=== PATIENT | male | born 1950 | race Caucasian/White ===

== ENCOUNTER → 2016-06-04 | Outpatient (CLI) | payer BC ==
[~2016-06-04] VITALS: Ht 179.1 cm; Wt 115.9 kg
[~2016-06-04] MED LIST: ATOR10TA82 PO; COEN1CAP28 PO; GLC/500 PO; LISI5TAB3 PO; MELO15TA4 PO
[2016-06-04 15:33] VITALS: BP 129/77; PULSE 71; Ht 179.1 cm; Wt 115.9 kg
== END | disposition home or self-care (01) ==
LOC: C.NEUR 14:10
PROVIDERS: ATTEND Internal Medicine Pulmonary Disease
DX: R06.83 Snoring (principal); R53.83 Other fatigue; R06.81 Apnea, not elsewhere classified; E11.9 Type 2 diabetes mellitus without complications; I10 Essential (primary) hypertension; E78.5 Hyperlipidemia, unspecified

== ENCOUNTER → 2016-07-22 | Outpatient (CLI) | payer BC ==
--- NOTE | 2016-07-23 05:40 | PAP/PSG TECHNICIAN REPORT ---
[facility] Instructor Adjunct Surgical Technician Polysomnogram Report Study name: None Report date: 07/23/2016 Study date: 07/22/2016 Referring Physician: Ha Alfaro M.D. Name: JANET RIOS Interpreting Physician: Ha Alfaro M.D. Date of : 1950 Instructor Adjunct Surgical Technician: Rosy Ham RPSGT. Sex: Male Age: 66 StudyType: PSG Weight: 254.9 lbs Height: 66 years, Height 5' 10.9" Neck Circum: 18 inches BMI: 35.65 Medications: Lisinopril 5 mg, Atorvsatatin 10 mg, Metformin 500 mg, Meloxicam 15 mg, CO-Q-10 100 mg Patient History 66 yr. old male here for a diagnostic sleep study in room 6. Patient complains of snoring, fatigue, wakes frequently, and witnessed apneas. Patients [place] Sleepiness scale score is 13/24. Parameters Monitored NPSG: E1-M2, E2-M1, Fp1-M2, Fp2-M1, F3-M2, F4-M2, F4-M1, C3-M2, C4-M2, C4-M1, O1-M2, O2-M2, O2-M1, T3-M2, T4-M1, P3-M2, P4-M1, CHIN1, CHIN2, HR, EKG, Legs, PFLOW, SNOR, FLOW, CFLOW, Tidal Volume, THOR, ABDO, SpO2, PLTH, CPRESS, ETCO2 Wave, ETCO2, pH Sleep Architecture Sleep Stages Time at Lights Off 9:38:02 PM STAGES Time (min.) TST (%) Time at Lights On 5:27:32 AM Wake 140.0 -- Total Recording Time (TRT) 469.50 min. N1 52.0 16 Total Sleep Period (TSP) 407.5 min. N2 188.0 57 Total Sleep Time (TST) 329.5min. N3 27.0 8 Awake Time 140.0 min. REM 62.5 19 Wake after Sleep Onset 78.0 min. Sleep Efficiency (SE) 70 % Sleep Onset Latency (ARTEM) 62.0 min. Number of Stage 1 Shifts None Awakenings 46 Stage Changes 172 Number of REM periods 3 REM 62.5 19 REM Latency 105.0 min. NREM 267.0 81 Body Position Analysis Supine Right Left Side Prone Vertical Total Sleep Time (min.) 188.6 94.5 161.5 256.00 0.0 0.0 Total Sleep Time (%) 22% 29% 49% 78 0% N/A% Total Sleep Time REM (min.) 0.0 0.0 62.5 None 0.0 0.0 Total Sleep Time NREM (min.) 73.5 94.5 99.0 None 0.0 0.0 Intermittent Wake (min.) 115.1 14.9 10.1 None 0.0 0.0 Total Sleep Period (%) 31% None None None None None Arousals Myoclonus (PLM) * Events Count Index Events Count Index Spontaneous 3 1 Events Awake (PLMW) 252 108.0 Respiratory 47 9.7 Events Asleep w/ Arousal (PLMA) 14 2.5 PLM 14 3 Events Asleep w/o Arousal (PLMS) 161 29.3 Snoring 23 4 Total Asleep 175 31.9 Total 87 16 Total 427 55 Respiratory Analysis * CA OA MA CH H RERA Total Count 1 8 0 0 180 0 189 Index 0.2 1.5 0.0 0 32.8 0 34.4 Mean Duration 0.0 19.3 0.0 0.00 24.5 0.0 24.1 Longest Duration 0.0 26.9 0.0 0.00 0.0 0.0 59.3 Respiratory Event Summary Total Supine ~Supine Right Left Prone REM NREM Apneas Count 9 6 3 0 3 N/A 0 9 Index 1.6 5 1 0.0 1.1 N/A 0 2 Hypopneas (4% Desat) Count 180 87 93 33 60 N/A 11 169 Index 32.8 71.0 22 21.0 22.3 N/A 10.6 38.0 Apneas & All Hypopneas Count 189 93 96 33 63 N/A 11 178 Index 34.4 76 23 21 23 N/A 10.6 40.0 Respiratory Events (Cereal Miller+All Hyp+RERA) Count 189 93 96 33 63 N/A 11 178 Index 34.4 76 23 21.0 23.4 N/A 10.6 40.0 Respiratory Related Arousal Count 47 93 18 5 13 N/A 1 52 Index 9.7 29 4 3 5 N/A 1 12 Snoring Analysis Supine Right Left Prone REM NREM Total Snore duration 57.6 min Snores count 199 1,010 754 N/A 57 1,906 1,963 Snore mean duration 1.8 Sec Snores index 162 641 280 N/A 54.7 428.3 357.5 TST with snoring (%) 17.5% Desaturation Event Summary: Minimum %SpO2 Event Count Mean/Min/Max Duration(sec.) Desaturation Index % Time In Bed > 90 259 26.8 / 9.3 / 60.0 34.6 95.9 86 - 90 0 N/A 0.0 4.0 81 - 85 0 N/A 0.0 0.1 76 - 80 0 N/A 0.0 0.0 71 - 75 0 N/A 0.0 0.0 66 - 70 0 N/A 0.0 0.0 61 - 65 0 N/A 0.0 0.0 56 - 60 0 N/A 0.0 0.0 51 - 55 0 N/A 0.0 0.0 < 50 0 N/A 0.0 0.0 Total REM NREM Awake <50% 0.0 min. 0.0 min. 0.0 min. 0.0 min. 51 - 60% 0.0 min. 0.0 min. 0.0 min. 0.0 min. 61 - 70% 0.0 min. 0.0 min. 0.0 min. 0.0 min. 71 - 80% 0.0 min. 0.0 min. 0.0 min. 0.0 min. 81 - 90% 19.4 min. 2.7 min. 13.9 min. 2.8 min. 91 - 100% 448.9 min. 59.8 min. 253.0 min. 136.0 min. Average 94 93 93 94 Minimum SpO2 83 88 85 83 Desaturation Event Index 33.1 12.5 42.2 28.7 # Desat. Events below 89% 19 N/A 14 5 Time(%) with Saturation below 89% 0.5 0.0 0.3 0.2 Time(min.) with Saturation below 89% 2.2 0.1 1.2 0.8 Time (mins) REM (mins) NREM (mins) % of TST SpO2 Below 90% 72 4 N68 1.2 SpO2 Below 88% 6 0 0 0 Heart Rate Analysis Min (bpm) Max (bpm) Average (bpm) Awake 52 115 62 NREM 51 71 58 REM 52 71 56 Overall 51 71 58 Supplemental O2 Values Minimum O2 level: None Value Start Time End Time Instructor Adjunct Surgical Technician Comments Mr. Rios slept in the right, left, and supine positions. No cardiac arrhythmia. PLMs noted. No bruxism noted. Snoring was noted and scored as a 4 on a scale of 0 through 5. (0=no snoring, 5=snoring loud enough to be heard through a closed door or down the ortiz way) Mr. Rios did not wake to use the restroom s during the night. Mr. Rios stated, that was a good night, I usually get up more at home. The final report will be interpreted and signed by a sleep physician. The completed physician report will then be placed in the patient medical record. Therapy (cm H2O) 0 TIB (min.) 469.5 TST (min.) 329.5 Sleep Onset (min.) 62.0 REM Onset From Sleep (min.) 105.0 Sleep Efficiency % 70 Wakefulness (%) 30 Wakefulness (min.) 140.0 NREM 1 (%) 16 NREM 1 (min.) 52.0 NREM 2 (%) 57 NREM 2 (min.) 188.0 NREM 3 (%) 8 NREM 3 (min.) 27.0 REM (%) 19 REM (min.) 62.5 # Arousals 87 Arousal Index 16 # Snore 1,963 Snore Index 357.5 AHI 34.4 AHI Supine 76 AHI Non-Supine 23 NREM AHI 40.0 REM AHI 10.6 RDI 34.4 # Obstructive Apnea 8 # Central Apnea 1 # Mixed Apnea 0 # Hypopneas 180 RERAs 0 Total Respiratory Events 212 Time Below SpO2 89% (min.) 1.4 Mean NREM SpO2 (%) 93 Mean REM SpO2 (%) 93 Mean Sleep SpO2 (%) 93 Min NREM SpO2 (%) 85 Min REM SpO2 (%) 88 Position Supine (min.) 188.6 Position Non-supine (min.) 256.0 LM Index Sleep 31.9 LM Index NREM 35.7 LM Index REM 15.4 Mean Heart Rate (bpm) 58 Min Heart Rate (bpm) 51
--- NOTE | 2016-07-24 17:14 | POLYSOMNOGRAPH REPORT ---
CLINICAL DATA: A 66-year-old male with BMI of 35.65 referred by myself and Dr. Escoto for evaluation of possible sleep apnea with snoring, fatigue, frequent awakenings, and witnessed apnea. His [place] sleepiness score was elevated at 13/24. SLEEP ARCHITECTURE: Total sleep period was 407.5 minutes. Total sleep time was 329.5 minutes divided between 267 minutes of non-REM sleep and 62.5 minutes of REM sleep. Sleep onset latency was delayed at 62 minutes. REM latency was 105 minutes. Sleep efficiency was reduced at 78%. Wake after sleep onset was 78 minutes. Sleep consisted of stage N1 16%, N2 57%, N3 8%, REM 19%. AROUSAL DATA: 87 arousals were recorded for an index of 16 per hour. PERIODIC LIMB MOVEMENTS DATA: 175 limb movements during sleep were noted for an index of 31.9 per hour with arousal index of 2.5 per hour. RESPIRATORY DATA: Severe sleep apnea was documented. The AHI was 34.4. There were 1 central and 8 obstructive apneic episodes. The longest duration of apnea was 26.9 seconds. There were 180 hypopneic episodes. The mean duration of hypopnea was 24.5 seconds. OXIMETRY DATA: Mild nocturnal hypoxemia was seen. The oxygen melinda was 85%. Mean saturation was 94%. Time below 88% was 6 minutes. EKG: Heart rate ranged from 51-71 beats per minute. No arrhythmias were noted. RETAIL GROCER'S COMMENTS: The patient slept in the right, left, and supine positions. Snoring was severe, rated 4 on a scale of 1-5. IMPRESSION: Severe sleep apnea/hypopnea with an apnea hypopnea index of 34.4. RECOMMENDATIONS: The patient may benefit from a repeat sleep study with CPAP or use of auto CPAP. Clinical correlation is needed. [facility]
== END | disposition home or self-care (01) ==
LOC: C.NEUR 21:00
PROVIDERS: ATTEND Internal Medicine Pulmonary Disease
DX: R53.83 Other fatigue (principal); R06.83 Snoring; G47.39 Other sleep apnea

== ENCOUNTER → 2016-07-26 | Outpatient (CLI) | payer BC ==
[~2016-07-26] VITALS: Ht 179.1 cm; Wt 115.8 kg
[2016-07-26 15:57] VITALS: BP 126/77; PULSE 67; Ht 179.1 cm; Wt 115.8 kg
== END | disposition home or self-care (01) ==
LOC: C.NEUR 15:04
PROVIDERS: ATTEND Internal Medicine Pulmonary Disease
DX: R06.83 Snoring (principal); R06.81 Apnea, not elsewhere classified; R53.83 Other fatigue; G47.30 Sleep apnea, unspecified

== ENCOUNTER → 2016-09-05 | Outpatient (CLI) | payer BC ==
[~2016-09-05] MED LIST changes: -ATOR10TA82 PO; +ATOR10TA88 PO
--- NOTE | 2016-09-06 05:36 | PAP/PSG TECHNICIAN REPORT ---
[facility] Handyman Polysomnogram Report Study name: None Report date: 09/06/2016 Study date: 09/05/2016 Referring Physician: Ha Alfaro M.D. Name: JANET RIOS Interpreting Physician: Ha Alfaro M.D. Date of : 1950 Handyman: Jamey Waterman RPSGT. Sex: Male Age: 66 StudyType: PSG PAP Weight: 255 lbs 18 inches Height: 66 years, Height 5' 10.5" Neck Circum: BMI: 36.07 Medications: ATORVASTATIN CALCIUM 10 MG, COENZYME Q10 25 MG, GLUCOPHAGE 500 MG, LISINOPRIL 5 MG, MOBIC 15 MG, PROAIR HFA 108 (90) BASE, Patient History PATIENT HAD A SLEEP STUDY DONE IN JULY OF 2016 AND WAS POSITIVE FOR CHASIDY WITH AN AHI OF 34.4/HR. HE IS HERE TODAY FOR A CPAP TITRATION. RM 3 Parameters Monitored NPSG: E1-M2, E2-M1, Fp1-M2, Fp2-M1, F3-M2, F4-M2, F4-M1, C3-M2, C4-M2, C4-M1, O1-M2, O2-M2, O2-M1, T3-M2, T4-M1, P3-M2, P4-M1, CHIN1, CHIN2, HR, EKG, Legs, PFLOW, SNOR, FLOW, CFLOW, Tidal Volume, THOR, ABDO, SpO2, PLTH, CPRESS, ETCO2 Wave, ETCO2, pH Sleep Architecture Sleep Stages Time at Lights Off 9:06:33 PM STAGES Time (min.) TST (%) Time at Lights On 4:56:33 AM Wake 125.0 -- Total Recording Time (TRT) 470.50 min. N1 27.0 8 Total Sleep Period (TSP) 441.5 min. N2 186.5 54 Total Sleep Time (TST) 345.0min. N3 46.5 13 Awake Time 125.5 min. REM 85.0 25 Wake after Sleep Onset 118.0 min. Sleep Efficiency (SE) 73 % Sleep Onset Latency (ARTEM) 7.0 min. Number of Stage 1 Shifts None Awakenings 35 Stage Changes 116 Number of REM periods 5 REM 85.0 25 REM Latency 85.5 min. NREM 260.0 75 Body Position Analysis Supine Right Left Side Prone Vertical Total Sleep Time (min.) 103.8 303.7 0.0 303.65 0.0 0.0 Total Sleep Time (%) 12% 88% 0% 88 0% N/A% Total Sleep Time REM (min.) 0.0 85.0 0.0 None 0.0 0.0 Total Sleep Time NREM (min.) 41.3 218.7 0.0 None 0.0 0.0 Intermittent Wake (min.) 62.4 62.6 0.0 None 0.0 0.0 Total Sleep Period (%) 17% None None None None None Arousals Myoclonus (PLM) * Events Count Index Events Count Index Spontaneous 28 5 Events Awake (PLMW) 173 83.0 Respiratory 9 2.3 Events Asleep w/ Arousal (PLMA) 16 2.8 PLM 16 3 Events Asleep w/o Arousal (PLMS) 120 20.9 Snoring 3 1 Total Asleep 136 23.7 Total 56 10 Total 309 39 Respiratory Analysis * CA OA MA CH H RERA Total Count 0 2 0 0 15 9 17 Index 0.0 0.3 0.0 0 2.6 2 4.5 Mean Duration 0.0 18.5 0.0 0.00 19.0 16.4 18.1 Longest Duration 0.0 23.1 0.0 0.00 0.0 18.7 30.6 Respiratory Event Summary Total Supine ~Supine Right Left Prone REM NREM Apneas Count 2 0 2 2 N/A N/A 0 2 Index 0.3 0 0 0.4 N/A N/A 0 0 Hypopneas (4% Desat) Count 15 3 12 12 N/A N/A 4 11 Index 2.6 4.4 2 2.4 N/A N/A 2.8 2.5 Apneas & All Hypopneas Count 17 3 14 14 N/A N/A 4 13 Index 3.0 4 3 3 N/A N/A 2.8 3.0 Respiratory Events ([employer] Carpenter+All Hyp+RERA) Count 17 8 18 18 N/A N/A 4 13 Index 4.5 12 4 3.6 N/A N/A 2.8 5.1 Respiratory Related Arousal Count 9 8 8 8 N/A N/A 0 13 Index 2.3 7 2 2 N/A N/A 0 3 Snoring Analysis Supine Right Left Prone REM NREM Total Snore duration 2.6 min Snores count 70 37 N/A N/A 6 101 107 Snore mean duration 1.5 Sec Snores index 102 7 N/A N/A 4.2 23.3 18.6 TST with snoring (%) 0.8% Desaturation Event Summary: Minimum %SpO2 Event Count Mean/Min/Max Duration(sec.) Desaturation Index % Time In Bed > 90 30 30.5 / 11.0 / 58.5 3.8 99.9 86 - 90 0 N/A 0.0 0.1 81 - 85 0 N/A 0.0 0.0 76 - 80 0 N/A 0.0 0.0 71 - 75 0 N/A 0.0 0.0 66 - 70 0 N/A 0.0 0.0 61 - 65 0 N/A 0.0 0.0 56 - 60 0 N/A 0.0 0.0 51 - 55 0 N/A 0.0 0.0 < 50 0 N/A 0.0 0.0 Total REM NREM Awake <50% 0.0 min. 0.0 min. 0.0 min. 0.0 min. 51 - 60% 0.0 min. 0.0 min. 0.0 min. 0.0 min. 61 - 70% 0.0 min. 0.0 min. 0.0 min. 0.0 min. 71 - 80% 0.0 min. 0.0 min. 0.0 min. 0.0 min. 81 - 90% 0.7 min. 0.0 min. 0.0 min. 0.7 min. 91 - 100% 469.2 min. 85.0 min. 260.0 min. 124.2 min. Average 95 96 95 95 Minimum SpO2 89 91 91 89 Desaturation Event Index 3.8 4.9 2.8 5.8 # Desat. Events below 89% N/A N/A N/A N/A Time(%) with Saturation below 89% 0.0 0.0 0.0 0.0 Time(min.) with Saturation below 89% 0.0 0.0 0.0 0.0 Time (mins) REM (mins) NREM (mins) % of TST SpO2 Below 90% 2 N/A N2 0.0 SpO2 Below 88% 0 0 0 0 Heart Rate Analysis Min (bpm) Max (bpm) Average (bpm) Awake 49 77 58 NREM 48 64 55 REM 48 62 53 Overall 48 64 54 Supplemental O2 Values Minimum O2 level: None Value Start Time End Time Handyman Comments Mr. Rios slept in the right and supine positions. No cardiac arrhythmia noted. Leg movements noted. No bruxism noted. CPAP was initiated at +4 CMH2O and up-titrated to an optimal level of +13 CMH2O, which nearly eliminated all respiratory events and snoring. A Resmed Mirage Quattro full face size medium mask was used during titration Mr. Rios awoke to use the restroom 1 time during the night. Mr. Rios state I did not sleep as well as I do when I am in my own bed. The final report will be interpreted and signed by a sleep physician. The completed physician report will then be placed in the patient medical record. Therapy Event: Therapy (cm H20) 4 6 7 8 10 11 12 13 Total Time at Pressure (min.) 31.0 70.2 113.2 67.8 21.5 92.9 51.9 21.5 TST at Pressure (min.) 5.0 65.2 97.7 49.3 11.0 84.4 32.4 0.0 # Periods 1 1 1 1 1 1 1 1 Sleep Onset (min.) 7.0 0.0 0.0 0.0 0.0 0.0 0.0 0.0 REM Onset (min.) N/A 61.5 0.0 4.6 N/A 54.8 N/A N/A Sleep Efficiency % 16 92 86 72 51 90 62 0 Wakefulness (%) 84.0 7.1 13.7 27.3 48.9 9.2 37.5 99.9 Wakefulness (min.) 26.0 5.0 15.5 18.5 10.5 8.5 19.5 21.5 NREM 1 (%) 6.5 0.7 2.2 8.1 7.0 8.6 13.4 0.1 NREM 1 (min.) 2.0 0.5 2.5 5.5 1.5 8.0 7.0 0.0 NREM 2 (%) 9.6 51.3 56.4 15.2 44.1 41.3 49.0 0.0 NREM 2 (min.) 3.0 36.0 63.9 10.3 9.5 38.4 25.5 0.0 NREM 3 (%) 0.0 28.5 12.8 0.0 0.0 12.9 0.0 0.0 NREM 3 (min.) 0.0 20.0 14.5 0.0 0.0 12.0 0.0 0.0 REM (%) 0.0 12.3 14.9 49.4 0.0 28.0 0.0 0.0 REM (min.) 0.0 8.7 16.8 33.5 0.0 26.0 0.0 0.0 # Arousals 1 3 13 8 3 16 12 0 Arousal Index 12.1 2.8 8.0 9.7 16.4 11.4 22.2 0.0 # Snore 5 0 12 17 4 6 63 0 Snore Index 60.4 0.0 7.4 20.7 21.9 4.3 116.5 0.0 AHI 12.1 3.7 0.6 6.1 5.5 2.1 3.7 0.0 AHI Supine 0.0 N/A N/A N/A N/A 11.2 3.7 0.0 AHI Non-Supine 41.0 3.7 0.6 6.1 5.5 1.5 N/A N/A NREM AHI 12.1 2.1 0.0 18.9 5.5 2.1 3.7 0.0 REM AHI N/A 13.8 3.6 0.0 N/A 2.3 N/A N/A RDI 24.2 3.7 1.2 9.7 5.5 4.3 5.5 0.0 # Obstructive 0 0 0 1 1 0 0 0 # Central Ap 0 0 0 0 0 0 0 0 # Mixed 0 0 0 0 0 0 0 0 # Hypopneas 1 4 1 4 0 3 2 0 RERAS 1 0 1 3 0 3 1 0 Total Respiratory Events 2 4 2 8 1 6 3 0 Time Below SpO2 89.00% (min.) 0.0 0.0 0.0 0.0 0.0 0.0 0.0 0.0 Mean NREM SpO2 (%) 94 95 96 95 95 95 94 94 Mean REM SpO2 (%) N/A 96 97 97 N/A 96 N/A N/A Mean Sleep SpO2 (%) 94 95 96 96 95 95 94 94 Min NREM SpO2 (%) 91 92 94 92 93 91 91 94 Min REM SpO2 (%) N/A 92 93 91 N/A 93 N/A N/A Position Supine (min.) 3.5 0.0 0.0 0.0 0.0 5.4 32.4 0.0 Position Non-supine (min.) 1.5 65.2 97.7 49.3 11.0 79.0 0.0 0.0 LM Index Sleep 36.3 21.2 22.7 37.7 49.3 17.1 16.6 0.0 LM Index NREM 36.3 22.3 25.2 60.6 49.3 22.6 16.6 0.0 LM Index REM N/A 13.8 10.7 26.9 N/A 4.6 N/A N/A Mean Heart Rate (bpm) 57 55 53 53 56 55 56 55 Min Heart Rate (bpm) 55 50 48 48 53 49 51 55
--- NOTE | 2016-09-10 16:46 | Sleep Study ---
Sleep Study Report Date of Service: September 05, 2016 Sleep Study Report Clinical data: The patient is a 66-year-old male with a BMI 36 referred for a sleep study for treatment of severe sleep apnea. He had a sleep study done in July of 2016 which showed an AHI of 34.4. He is referred for a CPAP titration. Sleep architecture: Total sleep time is 345 minutes, divided between 260 minutes of non-REM sleep and 85 minutes REM sleep. Sleep latency was 7 minutes. REM latency was 85.5 minutes. Sleep efficiency was 73 percent. Wake after sleep onset was elevated at 118 minutes. Sleep consisted of stage N1 8 percent, N2 54 percent, N3 13 percent, and REM 25 percent. Arousal data: 56 arousals were recorded for an index of 10 per hour. PLM data: 136 limb movements during sleep were noted for an index of 23.7 per hour with an arousal index of 2.8 per hour Respiratory data: The AHI was 3. There are 2 obstructive apneic episodes. The longest duration of apnea was 23 seconds. There were 15 hypopneas . The mean duration of hypopnea was 19 seconds. Oximetry data: No hypoxemia was seen. Oxygen melinda was 91 percent. Mean saturation was 95 percent. EKG: Heart rates ranged from 48 to 64 beats per minute. No arrhythmias were noted. Set [employer]'s comments and treatment summary: The patient slept in the right and supine positions. He used a ResMed Mirage Quattro full face size medium mask. CPAP was titrated up to 12 centimeters water pressure. At his final pressure setting, he slept for 32 minutes with an AHI of 3.7. He was tried at 13 centimeters water pressure for 21 minutes but did not sleep. Impression: Severe sleep apnea improved on CPAP 12-13 centimeters water pressure with the above-noted interface Recommendations: The patient should be seen back in follow-up and started on CPAP at the above-noted pressure settings. Copies To 1: Tim Escoto, DO
== END | disposition home or self-care (01) ==
LOC: C.NEUR 20:00
PROVIDERS: ATTEND Internal Medicine Pulmonary Disease
DX: G47.33 Obstructive sleep apnea (adult) (pediatric) (principal)

== ENCOUNTER → 2016-10-25 | Outpatient (CLI) | payer BC ==
[~2016-10-25] VITALS: Ht 179.1 cm; Wt 11.5 kg
[2016-10-25 15:16] VITALS: BP 133/79; PULSE 57; Ht 179.1 cm; Wt 11.5 kg
== END | disposition home or self-care (01) ==
LOC: C.NEUR 13:55
PROVIDERS: ATTEND Internal Medicine Pulmonary Disease
DX: G47.30 Sleep apnea, unspecified (principal)

== ENCOUNTER → 2017-01-10 | Outpatient (CLI) | payer BC ==
[~2017-01-10] VITALS: Ht 179.1 cm; Wt 111.4 kg
[~2017-01-10] MED LIST changes: +ATOR10TA82 PO; -ATOR10TA88 PO
[2017-01-10 13:58] VITALS: BP 164/61; PULSE 71; Ht 179.1 cm; Wt 111.4 kg
== END | disposition home or self-care (01) ==
LOC: C.NEUR 13:28
PROVIDERS: ATTEND Internal Medicine Pulmonary Disease
DX: G47.30 Sleep apnea, unspecified (principal); R53.83 Other fatigue

== ENCOUNTER 2020-10-22 05:31 | Observation (INO) ==
[2020-10-22] MEDS ORDERED: diphenhydrAMINE 50 MG/ML VIAL IV STA (05:56)
[2020-10-22] MEDS ORDERED: DEXAMETHASONE SOD INJ 4 MG/ML VIAL IV STA (05:56)
[2020-10-22] MEDS ORDERED: FAMOTIDINE 20MG IV PUSH 20 MG/5 ML SYR IV STA (05:56)
--- NOTE | 2020-10-22 06:32 | Emergency Department Note ---
Impression & Plan Angioedema Admit to the [facility] service ED Provider Note NAME: JANET RIOS AGE: 70 SEX: M ARRIVES VIA: Walk-In INFORMANT: Patient ED PROVIDER(S): Aria Jimenez DO CHIEF COMPLAINT: Edema to the left face PLAN: Disposition: Admit to the [facility] Condition: Guarded MEDICAL DECISION MAKING: This is a 70-year-old male patient who presents to the emergency department with sudden onset of edema to the left side of his face. The patient has never had swelling like this before. The patient denies any difficulty breathing or swallowing. On the way to the hospital, some of the swelling resolved but then returned once he arrived here in the hospital. The patient does take an ADELA inhibitor. While here in the emergency department, the swelling seemed to move to his lower lip and then to the right side of his mouth. His presentation seems consistent with angioedema. He was given IV Decadron, IV Benadryl, and IV Pepcid with no significant improvement. The [facility] Triage Nursing notes reviewed and agree with them. Additional history obtained from his Vital Signs: reviewed and unremarkable Differential diagnosis: Acute allergic reaction, insect bite, angioedema ER treatment provided: IV Decadron IV Benadryl IV Pepcid Diagnostics interpreted by me: Cardiac Monitoring: Normal sinus rhythm at 64 Laboratory studies: See below HPI: 70/M arrives for evaluation of facial swelling. This is a 70-year-old male patient who presents to the emergency department with sudden onset of left- sided facial swelling. The patient denies ever having swelling like this in the past. He has no swelling to his tongue. He has no difficulty swallowing. He has no respiratory distress. ROS: See above HPI for pertinent positives & negatives. A total of 10 systems reviewed and were otherwise negative. PAST MEDICAL HISTORY:See Below PAST SURGICAL HISTORY:See Below FAMILY HISTORY:See Below SOCIAL HISTORY:See Below HOME MEDICATIONS:See Below ALLERGIES:See Below VITALS:See Below PHYSICAL EXAMINATION: HEENT: Head - normocephalic and atraumatic. Pupils are equal, round, and reactive to light. Extraocular eye muscles are intact, and sclera are anicteric. Nose - moist nasal mucosa without discharge. Mouth -the patient has significant edema to the left side of his mouth including the left upper l ip. Oropharynx is nonerythematous and there is no tonsillar exudate or edema noted. Neck: Supple; no edema noted to the left side of the neck. There is no cervical lymphadenopathy or nuchal rigidity. Heart: Regular rate and rhythm. There is a normal S1 and S2 with no murmurs, clicks, or gallops appreciated. Lungs: Clear to auscultation bilaterally with no wheezes, rales, or rhonchi. Abdomen: Soft, completely nontender, nondistended, with good bowel sounds. There are no palpable pulsatile masses or hepatosplenomegaly. There is no guarding, rigidity, or rebound noted. Extremities: No evidence of cyanosis, clubbing, or edema. There are easily palpable peripheral pulses. Skin: warm and dry with good turgor and no rashes. ED COURSE: Times/Reassessments: 0540: Patient was evaluated in room B9. A complete history and physical was performed. An IV lock was initiated and the patient was given 50 mg of IV Benadryl, 10 mg of IV Decadron, and 20 mg of IV Pepcid. Order was placed for continuous cardiac monitoring. The patient is in a normal sinus rhythm at a rate of 64. 0650: The patient was reevaluated now has swelling to the right upper lip. I reevaluated the patient again and the face still appears edematous despite the above medications. I will discussed the case with the [facility] hospitalist and they will evaluate him. Aria Jimenez DO Past Med/Surg History Medical History (Updated 10/23/20 @ 17:21 by Aria Jimenez DO) Asthma allergy induced inhaler prn Diabetes mellitus, type 2 History of colon polyps Hyperlipidemia Hypertension Kidney stones Sleep apnea cpap Surgical History History of Achilles tendon repair left foot History of appendectomy History of arthroscopy of left knee History of arthroscopy of right knee History of carpal tunnel release of both wrists History of colonoscopy History of cystoscopy History of lithotripsy x2 History of tooth extraction Family History Brother Family history of diabetes mellitus Sister Family history of diabetes mellitus Mother Family history of diabetes mellitus Family hx of colon cancer Family/Other Family history of diabetes mellitus grandson Family/Other Family history of diabetes mellitus nieces Other No family history of adverse response to anesthesia No family history of bleeding disorder Social History Smoking Status: Former smoker Second Hand Exposure: No; Hx Alcohol Use: Yes Alcohol type: beer Hx Substance Use: No Preferred Language: Vietnamese Communication Ability: Effective Panel Assembler Required: No Beliefs That Will Affect Care: None Current Living Situation: Spouse Feels Safe at Home: Yes Assistive Devices: None Allergies Allergies Allergy/AdvReac Type Severity Reaction Status Date / Time No Known Drug Allergies Allergy Verified 10/22/20 07:41 Home Meds Home Medications Medication Instructions Recorded Confirmed albuterol sulfate 90 mcg/actuation 1 puff INHALATION Q6H PRN 08/10/18 10/22/20 aerosol inhaler (ProAir HFA) atorvastatin 10 mg tablet 10 mg PO QAM 08/10/18 10/22/20 coenzyme Q10 100 mg tablet 100 mg PO QAM 08/10/18 10/22/20 diclofenac sodium 75 mg 75 mg PO BID 10/22/20 10/22/20 tablet,delayed release metformin 500 mg tablet 1,000 mg PO BIDM 10/22/20 10/22/20 Previous Rx's Medication Instructions Recorded hydrochlorothiazide 12.5 mg capsule 12.5 mg PO DAILY #30 cap 10/23/20 Results & Data (ED) Vital Signs Vital Signs - 24 hr 10/22/20 05:34 10/22/20 06:02 Temperature 36.4 C L Temperature Source Oral Pulse Rate 64 58 L Pulse Rate from SpO2 Sensor 58 L Respiratory Rate 18 23 Respiratory Depth Normal Blood Pressure 153/85 H 149/75 H Blood Pressure Mean 107 99 Pulse Oximetry 96 96 Oxygen Delivery Method Room Air Room Air Sepsis Recent Fever Within 48 Hours No Sepsis New/Unexplained Change in Mental Status N/A Sepsis Action Taken by Nursing No Action Required Laboratory Data Result diagrams: 10/22/20 12:56 Lab Results 10/22/20 10/22/20 Range/Units 08:45 08:45 COVID-19 Eval Order Covid19 at [facility] SARS-CoV-2 (PCR) NEGATIVE (Negative) Administered Medications Discontinued Medications Atorvastatin Calcium (Atorvastatin 10 Mg Tab) 10 mg PO QAM ROLO Stop: 11/22/20 08:59 Last Admin: 10/23/20 08:55 Dose: 10 mg Documented by: [id number] Cetirizine HCl (Cetirizine Hcl 10 Mg Tablet) 10 mg PO NOW ONE Stop: 10/22/20 13:54 Last Admin: 10/22/20 15:13 Dose: 10 mg Documented by: [id number] Dexamethasone (Dexamethasone Sod Inj 4 Mg/Ml Vial) 10 mg IV NOW STA Stop: 10/22/20 05:57 Last Admin: 10/22/20 06:00 Dose: 10 mg Documented by: [id number] Diphenhydramine HCl (Diphenhydramine 50 Mg/Ml Vial) 50 mg IV NOW STA Stop: 10/22/20 05:57 Last Admin: 10/22/20 06:01 Dose: 50 mg Documented by: [id number] Enoxaparin Sodium (Enoxaparin Inj 40 Mg/0.4 Ml Syr) 40 mg SQ Q24H ROLO Stop: 11/21/20 13:59 Last Admin: 10/22/20 14:22 Dose: 40 mg Documented by: [id number] Hydrochlorothiazide (Hydrochlorothiazide 25 Mg Tab) 12.5 mg PO QAM ROLO Stop: 11/22/20 11:44 Last Admin: 10/23/20 12:35 Dose: 12.5 mg Documented by: [id number] Famotidine (Pepcid 20mg Iv Push) 20 mg in 5 mls @ 2.5 mls/min IV NOW STA Stop: 10/22/20 05:57 Last Admin: 10/22/20 06:01 Dose: 2.5 mls/min Documented by: [id number] Insulin Aspart (Insulin Aspart 100 Units/Ml 3 Ml Pen) 0 units SC ACHS ROLO Stop: 11/21/20 22:04 Last Admin: 10/23/20 12:39 Dose: Not Given Documented by: [id number] Cosigned by: [id number] Admin: 10/23/20 08:57 Dose: 3 units Documented by: [id number] Cosigned by: [id number] Admin: 10/22/20 22:12 Dose: 2 units Documented by: [id number] Cosigned by: [id number] Metformin HCl (Metformin Hcl 500 Mg Tab) 1,000 mg PO BIDM [facility] Stop: 11/21/20 16:59 Last Admin: 10/23/20 08:55 Dose: 1,000 mg Documented by: [id number] Admin: 10/22/20 17:55 Dose: 1,000 mg Documented by: [id number] Discharge Plan Visit Data Chief Complaint: Facial Injury/Pain Stated Complaint: SWOLLEN LIP AND CHECK ED Provider: Aria Jimenez Discharge Problem: Angioedema Patient Disposition: Admitted As Inpatient Discharge Instructions Interventions: ED Discharge Assessment Last Done: 10/22/20 11:55 Discharge Problem: Angioedema Qualifiers: Encounter type: initial encounter Qualified Code(s): T78.3XXA - Angioneurotic edema, initial encounter
--- NOTE | 2020-10-22 08:24 | History & Physical Report ---
Date of Service October 22, 2020 Assessment & Plan (1) Angioedema: Plan: 70 y/o M w/ PMHx of HTN, DM2 who presents w/ new onset acute angioedema likely secondary to lisinopril use. Stable and not suggestive of airway involvement. - acute - most likely secondary to ADELA inhibitor use; lack of other obvious causes per HPI - less likely allergic angioedema - continue supportive care - will admit for observation overnight; no airway involvement at this time Present on Admission?: Yes (2) Severe sleep apnea: Plan: - continue home phs cpap settings, 12 mmHg per patient Present on Admission?: Yes (3) Essential hypertension: Plan: - d/c home lisinopril Present on Admission?: Yes (4) Diabetes mellitus: Plan: - continue home metformin 1000mg BID (5) Smokes less than 1/2 pack per day: Plan: - per patient, no current use, he had 10-15 pack year hx in past Present on Admission?: Yes (6) Seasonal allergies: Plan: - continue home Zyrtec Present on Admission?: Yes Plan: Covid neg FEN/GI: DM2 diet. No IV fluids. ppx: SQ Lovenox code: full dispo: med/surg History of Present Illness Chief Complaint: left facial swelling Primary Care Provider: Tim Escoto Capo Fisher is a 70 y/o male w/ PMHx of HTN, DM (A1c ~7.1), CHASIDY who presents w/ left facial/lip swelling upon waking up this morning at 430AM. He first noticed it when he was going to the restroom and notes that initially it was mild, but worsened and reached its worse at 5AM, so his took him to the ED. He has no prior hx of this. He has been on lisinopril 5mg daily for 10 years now and has never had a reaction to it before. Patient denies SOB or throat/airway involvement. Denies recent bee stings or allergic foods. He recen tly changed from meloxicam to diclofenac PO 2 months for joint inflammation. ED course: Patient was given 50 mg of IV Benadryl, 10 mg of IV Decadron, and 20 mg of IV Pepcid. The facial swelling persisted w/ slight improvement. There is more involvement of the bilateral upper lips, but the lower lip swelling has improved. Allergies Allergy/AdvReac Type Severity Reaction Status Date / Time No Known Drug Allergies Allergy Verified 10/22/20 07:41 Home Medications Medication Instructions Recorded Confirmed Type albuterol sulfate 90 mcg/actuation 1 puff INHALATION Q6H PRN 08/10/18 10/22/20 History aerosol inhaler (ProAir HFA) atorvastatin 10 mg tablet 10 mg PO QAM 08/10/18 10/22/20 History coenzyme Q10 100 mg tablet 100 mg PO QAM 08/10/18 10/22/20 History lisinopril 5 mg tablet 5 mg PO HS 08/10/18 10/22/20 History diclofenac sodium 75 mg 75 mg PO BID 10/22/20 10/22/20 History tablet,delayed release metformin 500 mg tablet 1,000 mg PO BIDM 10/22/20 10/22/20 History Past Med/Surg History Medical History (Updated 10/22/20 @ 17:15 by Bernabe Grant MD) Asthma allergy induced inhaler prn Diabetes mellitus, type 2 History of colon polyps Hyperlipidemia Hypertension Kidney stones Sleep apnea cpap Surgical History History of Achilles tendon repair left foot History of appendectomy History of arthroscopy of left knee History of arthroscopy of right knee History of carpal tunnel release of both wrists History of colonoscopy History of cystoscopy History of lithotripsy x2 History of tooth extraction Family History Brother Family history of diabetes mellitus Sister Family history of diabetes mellitus Mother Family history of diabetes mellitus Family hx of colon cancer Family/Other Family history of diabetes mellitus grandson Family/Other Family history of diabetes mellitus nieces Other No family history of adverse response to anesthesia No family history of bleeding disorder Social History Smoking Status: Former smoker Second Hand Exposure: No; Do You Dip or Chew Tobacco: Yes; Tobacco Cessation Education Requested by Patient: No Hx Alcohol Use: Yes Alcohol type: beer Hx Substance Use: No Preferred Language: Romansh Communication Ability: Effective Principal Network Architect Required: No Beliefs That Will Affect Care: None Current Living Situation: Spouse Other Information That Helps Us Care for You: No Feels Safe at Home: Yes Safety Concerns: Feels Safe At This Time Assistive Devices: Glasses Review of Systems Review of Systems: All systems reviewed & are unremarkable except as noted in HPI & below Mild numbness at lower lip earlier, resolved; currently has mild numbness at upper lip. No jaw numbness. Physical Exam Physical Exam: General: Grossly A&O. NAD. Cooperative. Well-appearing. HEENT: Atraumatic, normocephalic. EOMI. PERRL. Moderate facial swelling at L cheek w/o auricular or parotid involvement. Upper lip appears swollen. No tenderness to palpation of face. No tongue swelling. Pulm: CTAB. -wheezes, -rales, -rhonchi. Symmetrical chest rise. No respiratory distress. Cardiac: RRR, -mrg. Radial pulses intact and symmetrical. Trace LE eema. Abdominal: Nontender, nondistended, soft. Obese abdomen. Back: No CVA ttp. Musculoskeletal: Moving all extremities Neuro: CN II-XII intact; exam limited by L cheek swelling. 5+/5 strength of all 4 extremities. Normal sensation. Integumentary: No rashes. Results & Data Results & Data ([facility]) Vital Signs (Past 12 Hours) Vital Signs Temp Pulse Resp BP Pulse Ox 10/22/20 06:30 60 16 150/85 H 96 10/22/20 06:02 58 L 23 149/75 H 96 10/22/20 05:34 36.4 C L 64 18 153/85 H 96 Laboratory Results n/a Diagnostic Findings n/a Code Status & VTE Plan Code Status full code VTE Prophylaxis Plan VTE Prophylaxis will be ordered: Yes Supervising Physician Co-Signing Physician Notes I personally examined the patient and verified all tamayo points of history and exam, discussed case, and agree with decision making with Dr Grant. Still has some facial swelling, no tongue swelling, no dyspnea. Vitals noted, in general he is awake and alert pleasant no distress. HEENT normocephalic atraumatic mucous membranes are moist. He does have some subtle swelling of his left upper lip, and there is a bit of asymmetry with his left cheek appearing gonzalez than his right. No tongue swelling, airway is open, no stridor. Breathing unlabored no accessory muscle use. Angioedemagiven the rapid shifting and face swelling, ER felt it prudent to watch him to ensure no airway compromise. Thus far he has looked good. We discussed even possibly going home today, but in discussion of practical realities of the situation, [place] 25 [place] from [place] hospital, so in the very small chance that he would have any deterioration, it would take quite a while to return. To that end we agreed that it would be most prudent to watch him into tomorrow, with hopes of home in the a.m. Resident Activity Tracking Resident Involvement: Resident Care Provided Care Provided: Adult Hospital Medicine
[2020-10-22] MEDS ORDERED: ALBUTEROL HFA 8 GM INHALER INH PRN (12:48)
[2020-10-22 13:29] LABS: Creatinine Clr Calc Pharmacy 64.5 ml/min; Est GFR (African American) 64.2 ml/min; Est GFR (Non-African American) 55.4 ml/min
[2020-10-22] MEDS ORDERED: CETIRIZINE HCL 10 MG TABLET PO ONE (13:53)
[2020-10-22] MEDS ORDERED: ENOXAPARIN INJ 40 MG/0.4 ML SYR SQ SCH (14:00)
--- NOTE | 2020-10-22 17:15 | Billing Data ---
Date of Service October 22, 2020 Coding Level of Care Code INT OBSERVATION CARE 50M LVL 2
[2020-10-22] MEDS: metFORMIN HCL 500 MG TAB PO SCH (17:55)
[2020-10-22] MEDS ORDERED: GLUCOSE 40% GEL 15 GM TUBE PO PRN (21:42)
[2020-10-22] MEDS ORDERED: CARBOHYDRATES FOR HYPOGLYCEMIA PO PRN (21:42)
[2020-10-22] MEDS ORDERED: GLUCOSE 10 TABS/TUBE PO PRN (21:42)
[2020-10-22] MEDS ORDERED: DEXTROSE 50% 50 ML SYRINGE IV PRN (21:42)
[2020-10-22] MEDS ORDERED: GLUCAGON FOR INJ 1 MG VIAL SQ PRN (21:42)
[2020-10-22] MEDS: INSULIN ASPART 100 UNITS/ML 3 ML PEN SC SCH (22:12)
--- NOTE | 2020-10-23 07:11 | Hospitalist Progress Note ---
Date of Service October 23, 2020 Assessment & Plan (1) Angioedema: Plan: 70 y/o M w/ PMHx of HTN, DM2 who presents w/ new onset acute angioedema likely secondary to lisinopril use. Stable and not suggestive of airway involvement. - acute - most likely secondary to ADELA inhibitor use; lack of other obvious causes per HPI - less likely allergic angioedema - continue supportive care - will admit for observation overnight; no airway involvement at this time (2) Severe sleep apnea: Plan: - continue home phs cpap settings, 12 mmHg per patient (3) Essential hypertension: Plan: - d/c home lisinopril (4) Diabetes mellitus: Plan: - continue home metformin 1000mg BID (5) Smokes less than 1/2 pack per day: Plan: - per patient, no current use, he had 10-15 pack year hx in past (6) Seasonal allergies: Plan: - continue home Zyrtec Plan: Covid neg FEN/GI: DM2 diet. No IV fluids. ppx: SQ Lovenox code: full dispo: med/surg Admission and Anticipated Discharge Date Admission Date: October 22, 2020 Results & Data Results & Data ([facility]) Vital Signs (Past 12 Hours) Vital Signs Temp Pulse Pulse Resp BP Pulse Ox 10/22/20 23:30 72 18 96 10/22/20 22:33 36.8 C 71 18 159/73 H 96
[2020-10-23] MEDS ORDERED: INSULIN ASPART 100 UNITS/ML 3 ML PEN SC SCH (07:30)
[2020-10-23] MEDS: metFORMIN HCL 500 MG TAB PO SCH (08:55)
[2020-10-23] MEDS: INSULIN ASPART 100 UNITS/ML 3 ML PEN SC SCH ×2 (08:57→12:39)
[2020-10-23] MEDS ORDERED: ATORVASTATIN 10 MG TAB PO SCH (09:00)
[2020-10-23] MEDS ORDERED: hydroCHLOROthiazide 25 MG TAB PO SCH (11:45)
--- NOTE | 2020-10-23 14:28 | Discharge Summary ---
Date of Service October 23, 2020 Admission HPI Per Admitting Provider Capo Fisher is a 70 y/o male w/ PMHx of HTN, DM (A1c ~7.1), CHASIDY who presents w/ left facial/lip swelling upon waking up this morning at 430AM. He first noticed it when he was going to the restroom and notes that initially it was mild, but worsened and reached its worse at 5AM, so his took him to the ED. He has no prior hx of this. He has been on lisinopril 5mg daily for 10 years now and has never had a reaction to it before. Patient denies SOB or throat/airway involvement. Denies recent bee stings or allergic foods. He recently changed from meloxicam to diclofenac PO 2 months for joint inflammation. ED course: Patient was given 50 mg of IV Benadryl, 10 mg of IV Decadron, and 20 mg of IV Pepcid. The facial swelling persisted w/ slight improvement. There is more involvement of the bilateral upper lips, but the lower lip swelling has improved. Admission Exam Per Admitting Provider General: Grossly A&O. NAD. Cooperative. Well-appearing. HEENT: Atraumatic, normocephalic. EOMI. PERRL. Moderate facial swelling at L cheek w/o auricular or parotid involvement. Upper lip appears swollen. No tenderness to palpation of face. No tongue swelling. Pulm: CTAB. -wheezes, -rales, -rhonchi. Symmetrical chest rise. No respiratory distress. Cardiac: RRR, -mrg. Radial pulses intact and symmetrical. Trace LE eema. Abdominal: Nontender, nondistended, soft. Obese abdomen. Back: No CVA ttp. Musculoskeletal: Moving all extremities Neuro: CN II-XII intact; exam limited by L cheek swelling. 5+/5 strength of all 4 extremities. Normal sensation. Integumentary: No rashes. Principal Diagnosis Angioedema Discharge Exam Constitutional: well-appearing, no acute distress HEENT: NCAT, no conjunctival injection CV: regular rhythm, no murmur appreciated, extremities well-perfused, no LE edema Resp: CTABL, no wheezes/rales/rhonchi appreciated, no increased work of breathing Skin: warm, dry, no rash appreciated Neuro: AOx4, no focal neurological deficits appreciated Discharge Data Allergies Allergy/AdvReac Type Severity Reaction Status Date / Time No Known Drug Allergies Allergy Verified 10/22/20 07:41 Consultations 10/22/20 08:03 ED Decision to Admit Stat Hospital Course (1) Angioedema: Angioedema Patient's angioedema was suspected to be secondary to lisinopril, which was discontinued. He received 10mgs Decadron and Benadryl in ED. Symptoms improved gradually over time and had completely resolved by hospital day two. At no point was patient's airway or breathing affected. Patient was discharged on hospital day two in stable condition. Close PCP follow-up was recommended. HTN Since patient's lisinopril was discontinued, HCTZ was started at 12.5mg daily. Patient was instructed to follow up with PCP within one week. Total Time Total Time Spent Total Time Spent (In Minutes): see attending documentation Discharge Plan Discharge Items Patient Disposition: Home - Self-Care Reason For Visit: ANGIOEDEMA Discharge Diagnosis: Angioedema Activity: Resume your previous activity Non-emergency contact: Primary Care Provider Call non-emergency contact if: your symptoms worsen Follow-up/Referrals: Tim Escoto [Primary Care Provider] - 10/27/20 10:15 am Diet: Carb Consistent or DM2 Addtl Attending Provider Instructions: You were admitted to the hospital for angioedema. A discharge summary will be sent to your primary care physician to ensure continuity of care. Please bring this discharge summary with you to your next office appointment so that your provider can review it at that time. Follow-up appointments: Make a follow-up appointment with your PCP within the next week. It is very important that you follow up with them shortly after discharge from the hospital. Keep all your follow-up appointments as already scheduled. If you cannot make an appointment, notify your provider. Medications: Your medication list has been reviewed and reconciled upon discharge to ensure accuracy and continuity of care. An updated list of all your medications is included with your hospital discharge paperwork. We have discontinued your lisinopril. Please do not take lisinopril going forward. We started a new blood pressure medication called hydrochlorothizazide (HCTZ). Please take HCTZ 12.5mg once daily. Take your medications as instructed; do not skip a dose of your medicines. Make sure all of your doctors know every medicine you are taking (including [id number]-vposzxl medicines, vitamins, and supplements). Call your primary care provider before taking any new medicines (including qmmu-tiv-tshlhek medicines, vitamins, and supplements), because some of these may interact with your current medications, or may make your symptoms worse. Tell your primary care provider if you cannot afford your medications. CONTACT YOUR PRIMARY CARE PROVIDER if you experience any of the following: Swelling of any part of your face Numbness, tingling, or weakness Difficulty following your treatment plan, or difficulty taking medications CALL 911 OR GO TO THE EMERGENCY DEPARTMENT if you experience any of the following: Sudden, severe abdominal pain or nausea/vomiting Severe chest pain, or chest pain that radiates (moves) to your jaw or arm Sudden, severe shortness of breath or difficulty breathing Thank you for allowing us to participate in your care. Pending Studies at Discharge: No Stand-Alone Forms: My [facility], Smoking Cessation Medications and DC Order Prescriptions: New hydrochlorothiazide 12.5 mg capsule 12.5 mg PO DAILY Qty: 30 RF: 1 Continued atorvastatin 10 mg Tablet 10 mg PO QAM RF: 0 albuterol sulfate [ProAir HFA] 90 mcg/actuation Hfa Aerosol Inhaler 1 puff INHALATION Q6H PRN (Reason: Shortness Of Breath) RF: 0 coenzyme Q10 100 mg Tablet 100 mg PO QAM RF: 0 metformin 500 mg tablet 1,000 mg PO BIDM RF: 0 diclofenac sodium 75 mg tablet,delayed release (DR/EC) 75 mg PO BID RF: 0 Discontinued lisinopril 5 mg Tablet 5 mg PO HS RF: 0 Discharge Orders: Discharge Order (Routine); Ordered 10/23/20 Ordered By: Jimi Ibarra/Other Patient Handouts: ED Angioedema Admission Data Admit Date/Time: 10/22/20 10:16 Attending Provider: Anjelica Goodson Admit Provider: Bernabe Grant Primary Care Provider: Tim Escoto Other Providers: Gordon Shell Other Interventions: Discharge Summary Assessment (RN) Last Done: 10/23/20 12:17 Supervising Physician Co-Signing Physician Notes Resident Physician Supervision Note: I independently interviewed and examined the patient and verified the tamayo history and physical, reviewed labs and image studies and agree with resident Dr. Sosa findings and care plan. Resident Activity Tracking Resident Involvement: Resident Care Provided Care Provided: Adult Hospital Medicine
[2020-10-23] MEDS ORDERED: CETIRIZINE HCL 10 MG TABLET PO SCH (14:30)
== END 2020-10-23 12:50 | disposition home or self-care (01) ==
LOC: 3W 05:31 → ED 05:31 → SUATTDRO 10:16 → 3W 11:55
DX: G47.30 Sleep apnea, unspecified; Z79.84 Long term (current) use of oral hypoglycemic drugs; E11.9 Type 2 diabetes mellitus without complications; Z79.899 Other long term (current) drug therapy; I10 Essential (primary) hypertension; T78.3XXA Angioneurotic edema, initial encounter; F17.210 Nicotine dependence, cigarettes, uncomplicated